=== PATIENT | female | born 1985 | race American Indian/Alaskan Native ===

== ENCOUNTER 2023-11-27 14:44 | Emergency (ER) | payer OTHER ==
[~2023-11-27] VITALS: Ht 170.2 cm; Wt 104.3 kg
[~2023-11-27 14:44] MED LIST: ALBU90OI61 INH; CEPH500 PO; HYDACE5 PO; META800 PO; Monodox100 MG PO; TRAM50 PO
[2023-11-27 15:07] VITALS: BP 140/102
== END 2023-11-27 17:42 | disposition home or self-care (01) ==
LOC: ER 14:44
DX: L25.9 Unspecified contact dermatitis, unspecified cause (principal); J45.909 Unspecified asthma, uncomplicated; Z91.013 Allergy to seafood
CPT/HCPCS: 99282

== ENCOUNTER 2024-03-13 14:22 | Emergency (ER) | payer OTHER ==
[~2024-03-13] VITALS: Ht 170.2 cm; Wt 104.3 kg
[2024-03-13 15:31] LABS: BASOPHILS ABSOLUTE AUTO 0.09 K/mm3 (0.00-0.23); BASOPHILS PERCENT AUTO 1 % (0-2); EOSINOPHILS PERCENT AUTO 3 % (0-6); Hemoglobin 14.9 g/dL (11.5-16.0); IMMATURE GRAN ABSOLUTE AUTO 0.05 K/mm3 (0.00-0.10); IMMATURE GRAN PERCENT AUTO 0 % (0-1); LYMPHOCYTES ABSOLUTE AUTO 2.43 K/mm3 (0.84-5.20); LYMPHOCYTES PERCENT AUTO 20 % (21-46); MONOCYTES ABSOLUTE AUTO 0.86 K/mm3 (0.16-1.47); MONOCYTES PERCENT AUTO 7 % (4-13); Mean Corpuscular HGB Conc 34.7 g/dL (31.5-36.5); Mean Corpuscular Volume 87 fL (80-100); Mean Platelet Volume 10.7 fL (9.1-12.4); NEUTROPHILS ABSOLUTE AUTO 8.22 K/mm3 (1.96-9.15); NEUTROPHILS PERCENT AUTO 68 % (41-73); Platelet Count 409 K/mm3 (150-400); RDW Coefficient Variation 12.3 % (11.7-14.2); RDW Standard Deviation 38.7 fL (35.1-46.3); Red Blood Cell Count 4.97 M/mm3 (3.80-5.20); White Blood Cell Count 12.05 K/mm3 (4.00-11.30)
[2024-03-13 15:53] LABS: Albumin, Blood 3.6 g/dL (3.4-5.0); Albumin/Globulin Ratio 0.9 (0.8-1.8); Bilirubin, Total 0.7 mg/dL (0.1-1.0); Bun/Creatinine Ratio 16.8 (12.0-20.0); Calcium, Blood 8.8 mg/dL (8.5-10.1); Creatinine, Blood 0.54 mg/dL (0.40-1.00); Globulin, Blood 4.1 g/dL (2.2-4.0); Potassium, Blood 4.2 mmol/L (3.5-5.5); Total Protein, Blood 7.7 g/dL (6.4-8.2)
[2024-03-13] MEDS ORDERED: Mag Hydrox/AL Hydrox/Simeth 30 ML UDC PO ONE (18:10)
[2024-03-13] MEDS ORDERED: Dicyclomine HCl 20 MG Tab PO ONE (18:10)
[2024-03-13 18:32] LABS: Source, Urine Clean Catch
[2024-03-13 18:45] LABS: Appearance, Urine Hazy (Clear); Bilirubin, Urine Neg (Neg); Blood, Urine 2+ (Neg); Color, Urine Yellow (P-Yellow); Glucose Qualitative, Urine Neg (Neg); Ketones, Urine Neg (Neg); Leukocyte Esterase, Urine 1+ (Neg); Nitrite, Urine Neg (Neg); Protein, Urine 1+ (Neg); Specific Gravity, Urine 1.025 (1.003-1.022); Urobilinogen, Urine NORM (Normal)
[2024-03-13 18:51] LABS: Amorphous Light (0-Heavy); Bacteria Few /hpf; Squamous Epithelial Cells Mod /hpf (Few)
[2024-03-13] MEDS ORDERED: DICY20 PO (19:04)
[2024-03-13] MEDS ORDERED: ONDA4 PO (19:04)
[2024-03-13] MEDS ORDERED: ACET500 PO (19:04)
[2024-03-13 19:22] VITALS: BP 126/66
== END 2024-03-13 19:23 | disposition home or self-care (01) ==
LOC: ER 14:22
PROVIDERS: Emergency Medicine; Student in an Organized Health Care Education/Training Program
DX: R10.13 Epigastric pain (principal); Z91.013 Allergy to seafood
CPT/HCPCS: 80053; 81001; 81025; 83690; 85025; 87086; 99284; A9270